=== PATIENT | male | born 1970 | race Caucasian/White ===

== ENCOUNTER 2020-12-10 20:21 | Emergency (ER) | payer OTHER, SELFPAY ==
[2020-12-10 20:23] VITALS: BP 156/90; PULSE 95; RESP 20; TEMP 36.1; O2SAT 97; BMI 48.8
--- NOTE | 2020-12-10 20:40 | ED.VIS.GEN ---
History of Present Illness Chief Complaint: Lower Extremity Injury Informant: Patient Onset: Today Narrative: Patient presents for evaluation of work-related injury to his right hamstrings. 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 He states he was trying to move the patient he got kicked in the left leg however jumped back feeling a popping sensation behind his right thigh. He has no pain in the left leg. Pain worse with movement. He is able to finish work and went home with increasing pain took 800 mg of ibuprofen prior to arrival. Denies history of gastric ulcers or kidney injury. Denies any past medical history. Denies any allergies. Denies any previous similar injuries in the past. Prior similar symptoms: No Past Medical History - Allergies and Home Meds Allergies/Adverse Reactions: Allergies No Known Allergies Allergy (Verified 12/10/20 20:27) Primary Care Physician: NOT,DEFINED [Primary Care Provider] - Past Medical History: None Review of Systems General: Denies: Chills, Fever, Sweats Eyes: Denies: Visual changes - bilaterally, Diplopia ENT: Denies: Rhinorrhea, Sore throat Cardiovascular: Denies: Chest pain, Palpitations Respiratory: Denies: Dyspnea, Cough, Dyspnea on exertion Gastrointestinal: Denies: Abdominal pain, Nausea, Vomiting, Diarrhea, Melena, Hematochezia Genitourinary: Denies: Dysuria, Hematuria, Frequency Musculoskeletal: Reports: Extremity Pain. Denies: Back pain Skin: Denies: Rash, Wounds Neurological: Denies: Headache, Weakness, Numbness Physical Exam Vital Signs/Narrative: Vital Signs Temp Pulse Resp BP Pulse Ox 12/10/20 20:23 96.9 F L 95 20 H 156/90 H 97 General: Well nourished, Well developed, No Acute Distress Head: Normocephalic, Atraumatic Eyes: Perrl, EOMI ENT: Moist mucous membranes, No rhinorrhea Neck: Supple, Nontender Cardiovascular: Regular rate, Regular rhythm, No murmurs Respiratory: No distress, CTA bilaterally, Chest nontender Abdomen: Soft, Nontender, Nondistended, Normal bowel sounds Back: Nontender, Normal Inspection Extremities: No edema, - - Right lower extremity: There is tenderness to the lateral hamstrings at the ischium and at the distal femur towards the insertion. There is no defects. No deformities. Skin intact. Neurovascular intact. Skin: Normal color, No rash Neurological: Alert, Oriented x3, Cranial nerves II-XII grossly intact, Normal Strength, Normal Sensation Psychological: Normal affect, Normal Mood Diagnostic/Tx/Re-eval - Medical Decision Making Patient took ibuprofen prior to arrival discussed safe the use of his ibuprofen will be 600 mg every 6 hours. Discussed x-ray imagings if he is concerned however likely would be negative for any acute bony process he agrees and declines at this time. I discussed exam concerns for hamstring strain, discussed her microtears that occurs with this. There is no defects were concerns for massive tear. Wang wrap provided, appropriate work restrictions. He states his work follows up with [employer] which he will follow-up with. All questions were answered. ED Disposition - Plan for ED Patient: Disposition: Home or Assisted Living Diagnosis: Right hamstring muscle strain Instructions: ED Muscle Strain, Extremity Referrals: NOT,DEFINED [Primary Care Provider] - [facility] - 1 Day Additional Instructions: Strain of your right hamstring muscle. Maintain Wang wrap. Work restrictions given. Continue ibuprofen 600 mg every 6 hours as needed. Follow-up with occupational health.
[2020-12-10 22:00] VITALS: RESP 16
== END 2020-12-10 22:01 | disposition home or self-care (01) ==
LOC: ED 20:56
PROVIDERS: Emergency Provider Emergency Medicine
DX: S76.311A Strain of muscle, fascia and tendon of the posterior muscle group at thigh level, right thigh, initial encounter (principal); X58.XXXA Exposure to other specified factors, initial encounter
CPT/HCPCS: 99283